=== PATIENT | female | born 2000 | race African-American/Black ===

== ENCOUNTER 2022-06-20 09:19 | Outpatient (CLI) | payer MEDICAID, SELFPAY ==
[2022-06-20 10:06] LABS: Basophils Percent Auto 0.3 % (0.0-3.0); Eosinophils Percent Auto 7.7 % (0.0-7.0); Hematocrit 42.6 % (33.0-51.0); Lymphocytes Percent Auto 52.4 % (20-44); Mean Corpuscular HGB Conc 33 gm/dL (32-36); Mean Corpuscular Hemoglobin 30 pg (26-34); Mean Corpuscular Volume 90 fL (80-100); Monocytes Percent Auto 7.7 % (0.0-11.0); Neutrophils Percent Auto 31.9 % (42.0-72.0); Platelet Count* 193 K/uL (140-440); RDW Coefficient of Variation % 13.2 % (11.5-15.5); Red Blood Count 4.72 m/uL (4.00-5.20); White Blood Count* 3.49 K/uL (4.50-11.00)
[2022-06-20 10:07] LABS: Slide Review Reflex No
[2022-06-21 17:47] LABS: Keppra (Levetiracetam) 18 ug/mL (10-40)
== END 2022-06-20 09:20 | disposition home or self-care (01) ==
PROVIDERS: PCP Family Medicine; Visit Provider Psychiatry & Neurology Neurology
DX: G40.311 Generalized idiopathic epilepsy and epileptic syndromes, intractable, with status epilepticus (principal); G93.40 Encephalopathy, unspecified
CPT/HCPCS: 36415; 80177; 85025

== ENCOUNTER 2023-07-24 09:07 | Outpatient (CLI) | payer MEDICAID, SELFPAY ==
--- OUTSIDE RECORDS SUMMARY | 2023-07-24 09:11 | XMS_ITS | Clinical Summary ---
Author Organization [facility] Address [place], [place] [address] Care Team Providers Care Email Administrator Name Role Phone Steve Prieto MD Unavailable [phone] Pam Guido DO Primary Care Provider [phone] Allergies No known active allergies Medications Medication Sig Dispensed Refills Start Date End Date Status Shower Chair Please reevaluate shower chair for patient for home use. 1 Device 0 08/04/2013 Active DMEIndications:Ocu lar motor apraxia syndrome,Hypotonia Orthotics, for home use 1 Package 0 08/09/2013 Active DMEIndications:Ocu lar motor apraxia syndrome,Hypotonia Arm splints, for home use 1 Package 0 08/09/2013 Active omeprazole 2 mg/mL suspensionIndicati ons:Feeding problem 20mg oral bid 180 mL 4 08/23/2014 Active polyethylene glycoL (MIRALAX) 17 gram/dose powderIndications: Other constipation Take 17 g by mouth once daily if needed for Constipation. 1 jar 3 10/27/2014 Active acetaminophen (TYLENOL) 160 mg/5 mL elixirIndications: Routine child health exam Take 10 mL by mouth every 4 hours if needed. Max acetaminophen dose for a child is 75mg/kg/day. 1 Bottle 2 10/27/2014 Active Hydraulic LiftIndications:Ho loprosencephaly (HC) 1 unit. Patient lift. Length of need 99 months Sling: small to medium-sized 1 Device 05/14/2016 Active Diaper,Brief, Adult,DisposableIn dications:Incontin ence in female For home use. Medium 180 Each 05/14/2016 Active medication order composerIndication s:Incontinence in female Chux to cover wheelchair pad for incontinence. 30 Units 12 05/14/2016 Active wheelchairIndicati ons:Microcephaly (HC),Holoprosencep haly (HC),Global developmental delay Length of need: 99 months to be evaluated at [facility] clinic at [place] 1 Device 09/03/2017 Active durable medical equipment (DME)Indications:G lobal developmental delay Sleep Safe Safety Bed 1 Each 10/20/2019 Active lactose-reduced food with fibr (ISOSOURCE 1.5 MANUEL) 0.07 gram-1.5 kcal/mL liqd Administer through feeding tube. 0 12/22/2019 Active medication order composerIndication s:Holoprosencephal y (HC),Urinary incontinence, unspecified type Incontinence wipes 1 box 01/25/2020 Active levETIRAcetam (KEPPRA) 100 mg/mL oral solution 1,000 mg two times daily. 01/24/2021 Active acetaminophen (TYLENOL) 650 mg suppositoryIndicat ions:Fever, unspecified fever cause Insert 1 Suppository (650 mg) rectally every 4 hours if needed (fever or pain). Max acetaminophen dose: 4000mg in 24 hrs. 50 Suppository 01/31/2021 Active guaiFENesin (ROBITUSSIN) 100 mg/5 mL liquidIndications: Cough Take 5-10 mL (100-200 mg) by mouth every 4 hours if needed for Expectoration. 180 mL 01/31/2021 Active diazePAM IntensoL 5 mg/mL solution 02/09/2021 Active valproic acid (DEPAKENE) 250 mg/5 mL (5 mL) oral solution Take 500 mg by mouth three times daily. Start with menses and take for 3-5 days Active wheelchairIndicati ons:Microcephaly (HC),Holoprosencep haly (HC),Global developmental delay Wheelchair: Reclining with leg rests: Length of need: lifetime 1 Each 03/13/2023 Active bisacodyL (Biscolax) 10 mg suppositoryIndicat ions:Other constipation Insert 1 Suppository rectally once daily if needed for Other (Specify). 90 Suppository 3 03/13/2023 Active albuterol 0.083% (2.5 mg/3 mL) neb solutionIndication s:Cough Inhale 3 mL (2.5 mg) via a nebulizer every 4 hours if needed for Cough 1st choice, Shortness of Breath 1st choice or Wheezing 1st choice. 100 mL 06/16/2023 Active NexIUM Packet 40 mg grps 40 mg two times daily. 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 05/17/2013 Hypotonia 05/17/2013 Seizure disorder 05/17/2013 Dysphagia 05/17/2013 Encounters Date Type Department Care Team Description 07/24/2023 8:45 AM CDT Ancillary Procedure [facility] [address] [facility] [place] [address] Arrived 07/24/2023 7:55 AM CDT Office Visit [facility] [address] [facility] [place] [address] Pam Guido DO Concerns (Increased seizure); Cough (1 day) 07/24/2023 Travel 07/22/2023 Orders Only [facility] [address] [place] [address] Pam Guido DO <No scans attached> 05/27/2023 Telephone [facility] [address] [facility] [place] [address] Pam Guido DO Error-please disregard 05/19/2023 11:50 AM CDT - 05/19/2023 11:59 PM CDT Hospital Encounter [address] [address] Pam Guido DO Burns, Kayla A, OT Holoprosencephaly (HC); Global developmental delay; Microcephaly (HC) 05/19/2023 Travel from Last 3 Months Immunizations Name Administration Dates Next Due DTaP 10/24/2007, 4,07/02/2002,05/11,02/26/2002 Hepatitis A (Peds) 04/30/2007,02/13/2006 Hepatitis B (Peds) 02/14/2003,05/11/2002, 003 Hib Conjugate, Unspecified 02/14/2003,05/11/2002 ,02/26/2002 Inactivated Polio Vaccine 04/30/2007,,05/11/2002,02/26 Influenza, IIV3 (Age >=3 years) 11/23/2007,02/13,01/05/2004 Influenza, IIV4 12/22/2019 MMR 04/30/2007,02/14/2003 Meningococcal Vaccine (Menveo) 12/22/2019,2014 Pneumococcal conj 13-Valent (Prevnar 13) 02/26/2002 Pneumococcal conj 7-Valent (Prevnar 7) 3,07/02/2002,05/11/2002 Tdap 01/01/2012 Varicella Vaccine 04/30/2007,02/14/2003 Family History Medical History Relation Name Comments Asthma No Family History Diabetes No Family History Heart Disease No Family History Social History Tobacco Use Types Packs/Day Years Used Date Smoking Tobacco: Never Passive Smoke Exposure: Never Smokeless Tobacco: Never Tobacco Cessation:Counseling Given: Not Answered Comments:no exposure Alcohol Use Standard Drinks/Week Comments No 0 (1 standard drink = 0.6 oz pur e alcohol) Social Connections Answer Date Recorded Frequency of Communication with Friends and Fami ly Not on file 02/24/2021 Financial Resource Strain Answer Date R ecorded Difficulty of Paying Living Expenses Not on file 02/24/2021 Difficulty of Paying Living Expenses Not on file 02/24/2021 Sex and Gender Information Value Date Recorded Sex Assigned at Not on file Gender Identity Not on file Sexual Orientation Not on file Obstetrics History Para Term AB IAB SAB Ectopic Multiple Livin g Live Births 0 0 0 0 0 0 0 0 0 0 0 Last Filed Vital Signs Vital Sign Reading Time Taken Comments Blood Pressure 108/78 07/24/2023 8:26 AM CDT Pulse 100 07/24/2023 8:06 AM CDT Temperature 36.9 ??C (98.4 ??F) 07/24/2023 8:06 AM CD T Respiratory Rate 36 01/31/2021 4:21 PM [employer] Oxygen Saturation 97% 07/24/2023 8:06 AM CDT Inhaled Oxygen Concentration - - Weight 56.2 kg (124 lb) 09/18/2022 4:11 PM CDT Height - - Body Mass Index - - Plan of Treatment Health Maintenance Due Date Last Done Comments HIV for age 15-65 2016 HPV series for age 9-26 (1 - 3-dose series) 2016 Hepatitis C screening for ag e 18-79 12/22/2019 Tetanus booster 12/31/2021 01/01/2012 COVID-19 vaccine series (2022-24 season) 2022 Pap test for age 21-65 2022 Influenza for age 9-49 10/26/2023 , 11/23/2007, 02/13/2006, Additional history exists Pneumococcal series for age 6-64 Completed 02/14/2003, 07/02/2002, 05/11/2002, Additional history exists Tdap Completed 01/01/2012 Meningococcal series for age 11-21 Completed 2019, 10/27/2014 Procedures Procedure Name Priority Date/Time Associated Diagnosis Comments URINALYSIS MICROSCOPIC Routine 07/24/2023 8:00 AM CDT Seizures (HC) UA W/ SEDIMENT EXAM REFLEXED PER CRITERIA Routine 07/24/2023 8:00 AM CDT Seizures (HC) from Last 3 Months Results * (ABNORMAL) URINALYSIS MICROSCOPIC (07/24/2023 8:00 AM CDT) RBC 3-5(A) 0-2, None Seen /HPF 07/24/2023 8:14 AM CDT [facility] WBC 3-5 0-2, 3-5, None Seen /HPF 07/24/2023 8:14 AM CDT [facility] BACTERIA Few None Seen, Rare, Few Bacteria/ HPF 07/24/2023 8:14 AM CDT [facility] EPITHELIAL CELLS Moderate(A) None Seen, Few Epi/HPF 07/24/2023 8:14 AM CDT [facility] Mucus Present 07/24/2023 8:14 AM CDT [facility] Urine URINE SPECIMEN / Unknown Non-Blood / Unknown 07/24/2023 8:00 AM CDT 07/24/2023 8:01 AM CDT Pam Guido DO [facility] [address] [place] [address], * (ABNORMAL) UA W/ SEDIMENT EXAM REFLEXED PER CRITERIA (07/24/2023 8:00 AM CDT) COLOR Yellow Yellow Color 07/24/2023 8:13 AM CDT [facility] CLARITY Clear Clear Clarity 07/24/2023 8:13 AM CDT [facility] SPECIFIC GRAVITY,URINE 1.020 1.010, 1.015, 1.020, 1.025 07/24/2023 8:13 AM CDT [facility] PH,URINE 7.0 6.0, 7.0, 8.0, 5.5, 6.5, 7.5, 8.5 07/24/2023 8:13 AM CDT [facility] UROBILINOGEN, QUALITATIVE Increased(A) Normal EU/dl 07/24/2023 8:13 AM CDT [facility] PROTEIN, URINE 30(A) Negative mg/dL 07/24/2023 8:13 AM CDT [facility] GLUCOSE, URINE Negative Negative mg/dL 07/24/2023 8:13 AM CDT [facility] KETONES,URINE 40(A) Negative mg/dL 07/24/2023 8:13 AM CDT [facility] BILIRUBIN,URI NE Negative Negative 07/24/2023 8:13 AM CDT [facility] OCCULT BLOOD,URINE Trace(A) Negative 07/24/2023 8:13 AM CDT [facility] NITRITE Negative Negative 07/24/2023 8:13 AM CDT [facility] LEUKOCYTE ESTERASE Negative Negative 07/24/2023 8:13 AM CDT [facility] Urine URINE SPECIMEN / Unknown Non-Blood / Unknown 07/24/2023 8:00 AM CDT 07/24/2023 8:01 AM CDT Pam Guido DO [facility] [address] [facility] [place] [address], [place] [phone] from Last 3 Months Care Teams Email Administrator Relationship Specialty Start Date End Date Pam Guido DO [address] [place] [address] PCP - General Family Practice 06/22/14 Steve Prieto MD Neurology Neurology - Child 06/14/13
--- OUTSIDE RECORDS SUMMARY | 2023-07-24 09:12 | XMS_ITS | Referral Summary ---
Author Organization [facility] Address [address] [facility] [place] [address] Care Team Providers Care Senior Military Analyst Name Role Phone Pam Guido Primary Care Provider Allergies Active Allergy Reactions Criticality Noted Date Comments No Known Drug Allergy 02/26/2002 Medications Medication Sig Dispensed Refills Start Date End Date Status acetaminophen (TYLENOL) [address] 650 mg rectally 01/31/2021 Active albuterol (PROVENTIL) (2.5 MG/3ML) 0.083% neb solution Inhale 2.5 mg into the lungs 01/31/2021 Active bisacodyl (DULCOLAX) [address] 10 mg rectally 01/24/2020 Active diazepam (VALIUM) 5 MG/ML (HIGH CONC) solution 02/09/2021 Active guaiFENesin (ROBITUSSIN) 100 MG/5ML SYRP Take 100-200 mg by mouth 01/31/2021 Active levETIRAcetam (KEPPRA) 100 MG/ML solution TAKE 2.5 ML BY MOUTH TWICE DAILY FOR 1 WEEK THEN TAKE 5 ML BY MOUTH TWICE DAILY 01/24/2021 Active Nutritional Supplements (ISOSOURCE 1.5 MANUEL) LIQD 12/22/2019 Active omeprazole (PRILOSEC) 2 mg/mL suspension Take by mouth every morning (before breakfast) Takes 15 mL Active ibuprofen (ADVIL/MOTRIN) 100 MG/5ML suspensionIndications: Pain, dental Take 30 mLs (600 mg) by mouth every 6 hours as needed for fever or moderate pain 360 mL 10/19/2021 Active Active Problems Problem Noted Date Diagnosed Date Pain, dental 10/19/2021 Delay in development 07/02/2002 Overview: Problem list name updated by automated process. Provider to review Amblyopia 07/02/2002 Overview: Problem list name updated by automated process. Provider to review HYPERTONIA 07/02/2002 Microcephalus 02/26/2002 Immunizations Name Administration Dates Next Due Comvax (HIB/HepB) 05/11/2002,02/26/2002 DTAP (<7y) 07/02/2002,05/11/2002,02/26/2002 Pneumococcal (PCV 7) 07/02/2002,05/11/2002,02/26 Poliovirus, inactivated (IPV) 05/11/2002, 003 Social History Tobacco Use Types Packs/Day Years Used Date Smoking Tobacco: Never Smokeless Tobacco: Never Tobacco Cessation:Counseling Given: No Alcohol Use Standard Drinks/Week Comments Never 0 (1 standard drink = 0.6 oz pur e alcohol) Adolescent Education Answer Date Record ed Getting School Help Needed Not on file 11/23 Sex and Gender Information Value Date Recorded Sex Assigned at Not on file Gender Identity Not on file Sexual Orientation Not on file Last Filed Vital Signs Vital Sign Reading Time Taken Comments Blood Pressure 103/81 10/19/2021 10:30 AM CDT Pulse 90 10/19/2021 10:30 AM CDT Temperature 36.7 ??C (98 ??F) 10/19/2021 10: 45 AM CDT Respiratory Rate 14 10/19/2021 10:4 5 AM CDT Oxygen Saturation 100% 10/19/2021 10: 30 AM CDT Inhaled Oxygen Concentration - - Weight 50.2 kg (110 lb 10.7 oz) 10/19/2021 6:45 AM CDT Height 147.3 cm (4' 10) 10/19/2021 6:45 AM CDT Body Mass Index 23.13 10/19/2021 6:45 AM CDT Plan of Treatment Not on file Advance Directives For more information, please contact: [phone] Documents on File Type Date Recorded Patient Surveillance Specialist Expl anation Advance Directives and Living Will 10/16/2021 Nancy (GUARDIAN TO 02-12-2026) Michelle Legal Temporary Guardianship 02-07-2020 to 02-06-2026 Care Teams Senior Military Analyst Relationship Specialty Start Date End Date Pam Guido PCP - General 10/19/21
--- OUTSIDE RECORDS SUMMARY | 2023-07-24 09:12 | XMS_ITS | Clinical Summary ---
Author Organization [place] Address [address] [facility] [place] [address] Care Team Providers Care Dorr Operator Name Role Phone Pam Guido Primary Care Provider [phone] Allergies Active Allergy Reactions Criticality Noted Date [...] 7) 07/02/2002,05/11/2002,02/26 Poliovirus, inactivated (IPV) 05/11/2002, 003 Family History Medical History Relation Comments Neurologic Disorder Brother Agenesis of the Corpus Callosum, 13 months older than pt. Relation Status Comments Brother Social History Tobacco Use Types Packs/Day Years [...] 10/19/2021 6:45 AM CDT Plan of Treatment Health Maintenance Due Date Last Done Comments ANNUAL REVIEW OF HM ORDERS 2001 CHLAMYDIA SCREENING 2001 HIV SCREENING 2016 HPV IMMUNIZATION (1 - 3-dose series) 2016 HEPATITIS C SCREENING 12/22/2019 YEARLY PREVENTIVE VISIT 2020 12/22/2019 DTAP/TDAP/TD IMMUNIZATION (7 - Td or Tdap) 12/31/2021 01/01/2012, 10/24/2007, 08/25/2003, Additional history exists COVID-19 Vaccine ( season) 2022 PAP 2022 PHQ-2 (once per calendar year) 2023 INFLUENZA VACCINE (Season Ended) 2023 12/22/2019, 11/23/2007, 02/13/2006, Additional history exists ADVANCE CARE PLANNING 10/16/2026 10/16/2021 HEPATITIS B IMMUNIZATION Completed 003, 02/14/2003, 05/11/2002, Additional history exists Pneumococcal Vaccine: Pediatrics (0 to 5 Years) and At-Risk Patients (6 to 64 Years) Aged Out 02/14/2003, 07/02/2002, 05/11/2002, Additional history exists No longer eligible based on patient's age to complete this topic IPV IMMUNIZATION Completed 04/30/2007, , 05/11/2002, Additional history exists MENINGITIS IMMUNIZATION Completed 12/22/2019, 10/27 RSV MONOCLONAL ANTIBODY Aged Out No l onger eligible based on patient's age to complete this topic Advance Directives For more information, please contact: [phone] Documents on File Type Date Recorded Patient Gold Leaf Gilder Expl anation Advance Directives and Living Will 10/16/2021 Nancy (GUARDIAN TO 02-12-2026) Michelle Legal Temporary Guardianship 02-07-2020 to 02-06-2026 Care Teams Dorr Operator Relationship Specialty Start Date End Date Pam Guido PCP - General 10/19/21
[2023-07-24 10:25] LABS: Basophils Absolute Auto 0.03 K/uL (0.00-0.30); Basophils Percent Auto 0.4 % (0.0-3.0); Eosinophils Absolute Auto 0.07 K/uL (0.00-0.50); Eosinophils Percent Auto 0.9 % (0.0-7.0); Hematocrit 42.6 % (33.0-51.0); Hemoglobin* 14.4 gm/dL (12.0-16.0); Immature Granulocytes Abs Auto 0.04 K/uL (0.00-0.30); Immature Granulocytes Pct Auto 0.5 %; Lymphocytes Absolute Auto 1.74 K/uL (0.90-2.90); Lymphocytes Percent Auto 22.3 % (20-44); Mean Corpuscular HGB Conc 34 gm/dL (32-36); Mean Corpuscular Hemoglobin 32 pg (26-34); Mean Corpuscular Volume 93 fL (80-100); Monocytes Percent Auto 7.7 % (0.0-11.0); Neutrophils Absolute Auto 5.32 K/uL (1.7-7.0); Neutrophils Percent Auto 68.2 % (42.0-72.0); Platelet Count* 165 K/uL (140-440); RDW Coefficient of Variation % 13.4 % (11.5-15.5); Red Blood Count 4.56 m/uL (4.00-5.20); Slide Review Reflex No
[2023-07-25 17:19] LABS: Keppra (Levetiracetam) 16 ug/mL (10-40)
== END 2023-07-24 09:08 | disposition home or self-care (01) ==
PROVIDERS: PCP Family Medicine; Visit Provider Psychiatry & Neurology Neurology
DX: G40.311 Generalized idiopathic epilepsy and epileptic syndromes, intractable, with status epilepticus (principal)
CPT/HCPCS: 36415; 80177; 85025